=== PATIENT | female | born 1965 | race Two or more races ===

== ENCOUNTER 2025-05-26 14:58 | Emergency (ER) | payer OTHER ==
[~2025-05-26] VITALS: Ht 157.5 cm; Wt 72.6 kg
[2025-05-26] MEDS ORDERED: ZESTRIL2.5 MG (16:07)
[2025-05-26] MEDS ORDERED: KETOROLAC TROMETHAMINE 30 MG VIAL IM ONE (16:30)
[2025-05-26] MEDS ORDERED: DEXAMETHASONE SODIUM PHOSPHATE 4 MG/ML VIAL IM ONE (16:30)
[2025-05-26] MEDS ORDERED: ORPHENADRINE CITRATE 30 MG/ML AMPUL IM ONE (16:30)
[2025-05-26] MEDS ORDERED: ORPHENADRINE CITRATE 30 MG/ML AMPUL ONE (16:37)
[2025-05-26] MEDS ORDERED: KETOROLAC TROMETHAMINE 30 MG VIAL ONE (16:37)
[2025-05-26] MEDS ORDERED: DEXAMETHASONE SODIUM PHOSPHATE 4 MG/ML VIAL ONE (16:37)
[2025-05-26] MEDS ORDERED: DICLOFENAC SODI50 MG PO (19:17)
[2025-05-26] MEDS ORDERED: NEURONTIN300 MG PO (19:17)
[2025-05-26] MEDS ORDERED: MEDROLPACK PO (19:27)
== END 2025-05-26 19:36 ==
LOC: ER 14:58
DX: M54.16 Radiculopathy, lumbar region (principal); M51.369 Other intervertebral disc degeneration, lumbar region without mention of lumbar back pain or lower extremity pain; I10 Essential (primary) hypertension